=== PATIENT | female | born 1930 | race African-American/Black ===

== ENCOUNTER → 2017-10-17 | Outpatient (CLI) | payer MEDICARE, OTHER ==
[~2017-10-17] VITALS: Ht 170.2 cm; Wt 82.0 kg
[~2017-10-17] MED LIST: ASCO500 PO; ASPI-1182 PO; CARV25 PO; CHL25 PO; ESOM40CA PO; FLUT1BLS PO; IPRAHFA IH; LORA10TA7 PO; MELO-107 PO; OMEG-53 PO; PRAV40TA4 PO; PRED10 PO; SANTO TP; TIOT4MIS5 IH; VALS160T2 PO; VITA400T9 PO; VITAD1000 PO; [UNRECOGNIZED DRUG - CODE] PO
[2017-10-17 10:48] VITALS: BP 171/79
== END | disposition home or self-care (01) ==
LOC: SRCNTR 10:19
PROVIDERS: ATTEND Internal Medicine Cardiovascular Disease
DX: I11.9 Hypertensive heart disease without heart failure (principal); E11.9 Type 2 diabetes mellitus without complications; E78.5 Hyperlipidemia, unspecified; K51.90 Ulcerative colitis, unspecified, without complications; K27.9 Peptic ulcer, site unspecified, unspecified as acute or chronic, without hemorrhage or perforation; K21.9 Gastro-esophageal reflux disease without esophagitis; K64.9 Unspecified hemorrhoids; K31.84 Gastroparesis; J44.9 Chronic obstructive pulmonary disease, unspecified; F17.210 Nicotine dependence, cigarettes, uncomplicated; Z79.82 Long term (current) use of aspirin; Z86.73 Personal history of transient ischemic attack (TIA), and cerebral infarction without residual deficits; Z88.0 Allergy status to penicillin; Z90.49 Acquired absence of other specified parts of digestive tract; Z96.651 Presence of right artificial knee joint
CPT/HCPCS: G0463

== ENCOUNTER → 2017-10-30 | Outpatient (CLI) | payer MEDICARE, OTHER ==
[2017-10-30 12:30] LABS: BASOPHILS % (AUTO) 1.1 % (0.0-2.0); EOSINOPHILS % (AUTO) 9.3 % (1.0-6.0); HEMATOCRIT 37.4 % (36-46); HEMOGLOBIN 12.7 g/dL (12.0-16.0); LYMPHOCYTES # (AUTO) 1.7 K/uL (1.0-4.8); LYMPHOCYTES % (AUTO) 19.8 % (22.0-44.0); MEAN CORPUSCULAR HEMOGLOBIN 30.6 pg (26.0-34.0); MEAN CORPUSCULAR VOLUME 90 fL (80-100); MONOCYTES # (AUTO) 0.8 K/uL (0.1-1.0); MONOCYTES % (AUTO) 9.9 % (2.0-9.0); NEUTROPHILS # (AUTO) 5.1 K/uL (1.8-7.7); NEUTROPHILS % (AUTO) 59.9 % (40.0-70.0); PLATELET COUNT (AUTO) 234 K/uL (150-450); RED BLOOD CELL COUNT(AUTO) 4.16 MIL/uL (4.00-5.20); RED CELL DISTRIBUTION WIDTH 14.9 % (11.5-14.5)
[2017-10-30 12:45] LABS: ALBUMIN 3.7 g/dL (3.4-5.0); BILIRUBIN,TOTAL 0.4 mg/dL (0.1-1.0); CALCIUM, TOTAL 8.9 mg/dL (8.8-10.5); CHOL/HDL RATIO 1.9 (3.9-5.7); CREATININE 1.33 mg/dL (0.60-1.30); POTASSIUM 3.9 mmol/L (3.5-5.1); THYROID STIMULATING HORMONE 4.78 uIU/mL (0.36-3.74); TOTAL PROTEIN, SERUM 7.8 g/dL (6.4-8.2)
[2017-10-30 13:07] LABS: APPEARANCE,URINE CLEAR (CLEAR); BILIRUBIN,URINE NEGATIVE (NEGATIVE); GLUCOSE, URINE (UA) NEGATIVE (NEGATIVE); KETONES,URINE NEGATIVE (NEGATIVE); LEUKOCYTE ESTERASE ,URINE NEGATIVE (NEGATIVE); NITRATE,URINE NEGATIVE (NEGATIVE); OCCULT BLOOD,URINE NEGATIVE (NEGATIVE); PH,URINE 5.5 (5.0-8.0); PROTEIN,URINE NEGATIVE (NEGATIVE); UROBILINOGEN,URINE 0.2 mg/dL (<=1.0)
[2017-10-30 13:44] LABS: BACTERIA,URINE Rare /HPF (None Seen); RBC,URINE None Seen /HPF (0-2); SQUAMOUS EPITHELIAL CELL,UR Few /LPF (None Seen); WBC,URINE 0-2 /HPF (0-5)
[2017-10-30 14:27] LABS: HEMOGLOBIN A1C 6.5 % (4.5-6.2)
== END | disposition home or self-care (01) ==
LOC: LABPV 09:49
PROVIDERS: ATTEND Internal Medicine Cardiovascular Disease
DX: I10 Essential (primary) hypertension (principal); E11.9 Type 2 diabetes mellitus without complications
CPT/HCPCS: 83036; 84443

== ENCOUNTER → 2017-11-25 | Outpatient (CLI) | payer MEDICARE, OTHER ==
[~2017-11-25] VITALS: Ht 170.2 cm; Wt 82.0 kg
[2017-11-25 14:58] VITALS: BP 130/57
== END | disposition home or self-care (01) ==
LOC: SRCNTR 14:55
PROVIDERS: ATTEND Podiatrist Foot & Ankle Surgery
DX: E11.51 Type 2 diabetes mellitus with diabetic peripheral angiopathy without gangrene (principal); L57.0 Actinic keratosis; Z79.82 Long term (current) use of aspirin; Z88.0 Allergy status to penicillin
CPT/HCPCS: G0463

== ENCOUNTER → 2018-01-02 | Outpatient (CLI) | payer MEDICARE, OTHER ==
[~2018-01-02] VITALS: Ht 170.2 cm; Wt 82.5 kg
[2018-01-02 11:00] VITALS: BP 152/61
== END | disposition home or self-care (01) ==
LOC: SRCNTR 10:46
PROVIDERS: ATTEND Internal Medicine Cardiovascular Disease
DX: Z48.812 Encounter for surgical aftercare following surgery on the circulatory system (principal); I11.0 Hypertensive heart disease with heart failure; I50.9 Heart failure, unspecified; I25.10 Atherosclerotic heart disease of native coronary artery without angina pectoris; J44.9 Chronic obstructive pulmonary disease, unspecified; E78.00 Pure hypercholesterolemia, unspecified; M81.0 Age-related osteoporosis without current pathological fracture
CPT/HCPCS: G0463

== ENCOUNTER → 2018-04-24 | Outpatient (CLI) | payer MEDICARE, OTHER ==
[~2018-04-24] VITALS: Ht 170.2 cm; Wt 83.5 kg
[2018-04-24 10:40] VITALS: BP 159/61
== END | disposition home or self-care (01) ==
LOC: SRCNTR 10:34
PROVIDERS: ATTEND Internal Medicine Cardiovascular Disease
DX: I11.9 Hypertensive heart disease without heart failure (principal); E11.9 Type 2 diabetes mellitus without complications; K21.9 Gastro-esophageal reflux disease without esophagitis; K51.90 Ulcerative colitis, unspecified, without complications; E78.5 Hyperlipidemia, unspecified
CPT/HCPCS: G0463

== ENCOUNTER → 2018-08-22 | Outpatient (CLI) | payer MEDICARE, OTHER ==
[~2018-08-22] MED LIST changes: +AMLO-512 PO; +ESOM40CA54 PO; +IRBE150T51 PO; +LEVO5TAB13 PO; +METF-283 PO; +PANT40TA25 PO; +SPIR25 PO; +VENTOLIN HFA
[2018-08-22 12:36] LABS: BASOPHILS % (AUTO) 0.9 % (0.0-2.0); EOSINOPHILS % (AUTO) 10.9 % (1.0-6.0); HEMOGLOBIN 12.2 g/dL (12.0-16.0); LYMPHOCYTES # (AUTO) 1.5 K/uL (1.0-4.8); LYMPHOCYTES % (AUTO) 18.8 % (22.0-44.0); MEAN CORPUSCULAR HEMOGLOBIN 30.3 pg (26.0-34.0); MEAN CORPUSCULAR HGB CONC 32.9 G/dL (31.0-37.0); MEAN CORPUSCULAR VOLUME 92 fL (80-100); MONOCYTES # (AUTO) 0.9 K/uL (0.1-1.0); MONOCYTES % (AUTO) 11.2 % (2.0-9.0); NEUTROPHILS # (AUTO) 4.5 K/uL (1.8-7.7); NEUTROPHILS % (AUTO) 58.2 % (40.0-70.0); PLATELET COUNT (AUTO) 246 K/uL (150-450); RED BLOOD CELL COUNT(AUTO) 4.01 MIL/uL (4.00-5.20)
[2018-08-22 12:36] LABS: APPEARANCE,URINE CLOUDY (CLEAR); BILIRUBIN,URINE NEGATIVE (NEGATIVE); GLUCOSE, URINE (UA) NEGATIVE (NEGATIVE); KETONES,URINE NEGATIVE (NEGATIVE); LEUKOCYTE ESTERASE ,URINE SMALL (NEGATIVE); NITRATE,URINE NEGATIVE (NEGATIVE); OCCULT BLOOD,URINE NEGATIVE (NEGATIVE); PH,URINE 5.5 (5.0-8.0); PROTEIN,URINE NEGATIVE (NEGATIVE); UROBILINOGEN,URINE 0.2 mg/dL (<=1.0)
[2018-08-22 13:00] LABS: BACTERIA,URINE Moderate /HPF (None Seen); RBC,URINE 0-2 /HPF (0-2); SQUAMOUS EPITHELIAL CELL,UR Moderate /LPF (None Seen)
[2018-08-22 13:09] LABS: HEMOGLOBIN A1C 6.8 % (4.5-6.2)
[2018-08-22 13:26] LABS: ALBUMIN 3.4 g/dL (3.4-5.0); BILIRUBIN,TOTAL 0.3 mg/dL (0.1-1.0); CALCIUM, TOTAL 8.8 mg/dL (8.8-10.5); CREATININE 1.57 mg/dL (0.60-1.30); POTASSIUM 3.7 mmol/L (3.5-5.1); THYROID STIMULATING HORMONE 4.32 uIU/mL (0.36-3.74); TOTAL PROTEIN, SERUM 7.3 g/dL (6.4-8.2)
[2018-08-22 13:43] LABS: CHOL/HDL RATIO 1.7 (3.9-5.7)
== END | disposition home or self-care (01) ==
LOC: LABPV 11:45
PROVIDERS: ATTEND Hospitalist
DX: E11.22 Type 2 diabetes mellitus with diabetic chronic kidney disease (principal); I13.0 Hypertensive heart and chronic kidney disease with heart failure and stage 1 through stage 4 chronic kidney disease, or unspecified chronic kidney disease; N18.9 Chronic kidney disease, unspecified; I50.9 Heart failure, unspecified; E11.51 Type 2 diabetes mellitus with diabetic peripheral angiopathy without gangrene; E11.65 Type 2 diabetes mellitus with hyperglycemia; Z79.82 Long term (current) use of aspirin; Z79.899 Other long term (current) drug therapy
CPT/HCPCS: 82271; 83036; 84443; 87086

== ENCOUNTER → 2018-09-12 | Outpatient (CLI) | payer MEDICARE, OTHER ==
[~2018-09-12] MED LIST changes: -ESOM40CA PO; -PRED10 PO; -VALS160T2 PO; -[UNRECOGNIZED DRUG - CODE] PO
[2018-09-12 12:05] LABS: BASOPHILS % (AUTO) 0.5 % (0.0-2.0); EOSINOPHILS % (AUTO) 8.9 % (1.0-6.0); HEMATOCRIT 41.1 % (36-46); HEMOGLOBIN 13.6 g/dL (12.0-16.0); LYMPHOCYTES # (AUTO) 1.7 K/uL (1.0-4.8); LYMPHOCYTES % (AUTO) 23.7 % (22.0-44.0); MEAN CORPUSCULAR HEMOGLOBIN 30.2 pg (26.0-34.0); MEAN CORPUSCULAR VOLUME 92 fL (80-100); MONOCYTES # (AUTO) 0.8 K/uL (0.1-1.0); MONOCYTES % (AUTO) 10.5 % (2.0-9.0); NEUTROPHILS # (AUTO) 4.1 K/uL (1.8-7.7); NEUTROPHILS % (AUTO) 56.4 % (40.0-70.0); PLATELET COUNT (AUTO) 296 K/uL (150-450); RED BLOOD CELL COUNT(AUTO) 4.49 MIL/uL (4.00-5.20); RED CELL DISTRIBUTION WIDTH 14.1 % (11.5-14.5)
[2018-09-12 12:27] LABS: ALBUMIN 3.6 g/dL (3.4-5.0); BILIRUBIN,TOTAL 0.4 mg/dL (0.1-1.0); CALCIUM, TOTAL 9.1 mg/dL (8.8-10.5); CREATININE 1.7 mg/dL (0.60-1.30); FREE T4 (FREE THYROXINE) 1.05 ng/dL (0.76-1.46); POTASSIUM 4.3 mmol/L (3.5-5.1); TOTAL PROTEIN, SERUM 7.6 g/dL (6.4-8.2)
== END | disposition home or self-care (01) ==
LOC: MSR 11:00
PROVIDERS: ATTEND Hospitalist
DX: J18.9 Pneumonia, unspecified organism (principal); I70.0 Atherosclerosis of aorta; I13.0 Hypertensive heart and chronic kidney disease with heart failure and stage 1 through stage 4 chronic kidney disease, or unspecified chronic kidney disease; E11.22 Type 2 diabetes mellitus with diabetic chronic kidney disease; N18.9 Chronic kidney disease, unspecified; I50.9 Heart failure, unspecified
CPT/HCPCS: 84439

== ENCOUNTER → 2018-09-12 | Outpatient (CLI) | payer MEDICARE, OTHER ==
[~2018-09-12] VITALS: Ht 170.2 cm; Wt 84.0 kg
[2018-09-12 10:20] VITALS: BP 119/55
== END | disposition home or self-care (01) ==
LOC: SRCNTR 10:10
PROVIDERS: ATTEND Hospitalist
DX: M16.11 Unilateral primary osteoarthritis, right hip (principal); E11.65 Type 2 diabetes mellitus with hyperglycemia; J20.9 Acute bronchitis, unspecified; J44.9 Chronic obstructive pulmonary disease, unspecified; E78.5 Hyperlipidemia, unspecified; I10 Essential (primary) hypertension
CPT/HCPCS: G0463

== ENCOUNTER 2018-11-23 16:34 | Emergency (ER) | payer MEDICARE, OTHER ==
[~2018-11-23] VITALS: Ht 162.6 cm; Wt 81.8 kg
[~2018-11-23 16:34] MED LIST changes: +BUDE0.5A3 NEB; +CETI10TA59 PO; -ESOM40CA54 PO; -FLUT1BLS PO; +GUAIF600 PO; +IPRA3AMP24 NEB; -LEVO5TAB13 PO; -LORA10TA7 PO; -MELO-107 PO; +MONT10TA21 PO; +PROM5SYR2 PO; -SANTO TP; -TIOT4MIS5 IH
[2018-11-23 17:19] LABS: GLUCOSE,POINT OF CARE 196 MG/DL (70-110)
[2018-11-23] MEDS ORDERED: ONDANSETRON HCL 4 MG/2 ML VIAL IVP ONE (18:45)
[2018-11-23] MEDS ORDERED: SODIUM CHLORIDE 0.9% 500 ML IV ONE ×2 (18:45→19:45)
[2018-11-23 18:55] LABS: BASOPHILS % (AUTO) 1.1 % (0.0-2.0); EOSINOPHILS % (AUTO) 7.2 % (1.0-6.0); HEMATOCRIT 34.5 % (36-46); HEMOGLOBIN 11.2 g/dL (12.0-16.0); LYMPHOCYTES # (AUTO) 1.4 K/uL (1.0-4.8); LYMPHOCYTES % (AUTO) 15.1 % (22.0-44.0); MEAN CORPUSCULAR HEMOGLOBIN 30.2 pg (26.0-34.0); MEAN CORPUSCULAR HGB CONC 32.5 G/dL (31.0-37.0); MEAN CORPUSCULAR VOLUME 93 fL (80-100); MONOCYTES # (AUTO) 1.1 K/uL (0.1-1.0); NEUTROPHILS # (AUTO) 5.8 K/uL (1.8-7.7); NEUTROPHILS % (AUTO) 64.6 % (40.0-70.0); PLATELET COUNT (AUTO) 225 K/uL (150-450); RED BLOOD CELL COUNT(AUTO) 3.72 MIL/uL (4.00-5.20)
[2018-11-23 19:05] LABS: CREATININE 1.81 mg/dL (0.60-1.30); POTASSIUM 3.9 mmol/L (3.5-5.1)
[2018-11-23 19:07] LABS: PROTHROMBIN TIME 10.4 SEC (9.4-11.6)
[2018-11-23] MEDS ORDERED: MORPHINE SULFATE 2 MG/ML SYRINGE IVP ONE (19:15)
[2018-11-23 19:30] LABS: ALBUMIN 3.6 g/dL (3.4-5.0); BILIRUBIN,TOTAL 0.3 mg/dL (0.1-1.0); TOTAL PROTEIN, SERUM 7.3 g/dL (6.4-8.2)
[2018-11-23] MEDS ORDERED: CYCLOBENZAPRINE HCL 10 MG TABLET PO ONE (20:00)
[2018-11-23 20:10] LABS: GLUCOSE,POINT OF CARE 104 MG/DL (70-110)
[2018-11-23 20:40] VITALS: BP 149/57
== END 2018-11-23 20:56 | disposition home or self-care (01) ==
LOC: EMS 16:36
DX: E86.0 Dehydration (principal); M62.838 Other muscle spasm; I11.0 Hypertensive heart disease with heart failure; I50.9 Heart failure, unspecified; E11.9 Type 2 diabetes mellitus without complications; E78.00 Pure hypercholesterolemia, unspecified; J45.909 Unspecified asthma, uncomplicated; Z88.0 Allergy status to penicillin; Z79.899 Other long term (current) drug therapy
CPT/HCPCS: 36415; 80053; 82550; 82962; 83690; 83880; 84484; 85025; 85610; 85730; 93005; 96374; 96375; 99285; J2270; J2405; J7040; 96361

== ENCOUNTER 2019-03-25 12:42 | Emergency (ER) | payer MEDICARE, OTHER ==
[~2019-03-25] VITALS: Ht 162.6 cm; Wt 82.7 kg
[~2019-03-25 12:42] MED LIST changes: -AMLO-512 PO; +AMLO10TA7 PO; -CETI10TA59 PO; +CHOL100018 PO; -METF-283 PO; -VITAD1000 PO
[2019-03-25 13:06] LABS: GLUCOSE,POINT OF CARE 96 MG/DL (70-110)
[2019-03-25] MEDS ORDERED: SITA50 PO (13:06)
[2019-03-25] MEDS ORDERED: SODIUM CHLORIDE 0.9% 250 ML IRRIG SOLUTION BOTTLE IRRIG ONE (15:15)
[2019-03-25] MEDS ORDERED: PERTUSS(ACELL),DIPH,TET VAC/PF 0.5 ML VIAL IM ONE (15:15)
[2019-03-25 15:39] VITALS: BP 121/62
[2019-03-25] MEDS ORDERED: ACETAMINOPHEN 325 MG TABLET PO ONE (15:45)
== END 2019-03-25 15:42 | disposition home or self-care (01) ==
LOC: EMS 12:45
DX: S01.111A Laceration without foreign body of right eyelid and periocular area, initial encounter (principal); S80.212A Abrasion, left knee, initial encounter; E11.9 Type 2 diabetes mellitus without complications; E78.00 Pure hypercholesterolemia, unspecified; I11.0 Hypertensive heart disease with heart failure; I50.9 Heart failure, unspecified; J45.909 Unspecified asthma, uncomplicated; M19.90 Unspecified osteoarthritis, unspecified site; Z86.73 Personal history of transient ischemic attack (TIA), and cerebral infarction without residual deficits; Z79.899 Other long term (current) drug therapy; Z90.49 Acquired absence of other specified parts of digestive tract; Z90.710 Acquired absence of both cervix and uterus; Z88.0 Allergy status to penicillin; W01.0XXA Fall on same level from slipping, tripping and stumbling without subsequent striking against object, initial encounter; Y93.89 Activity, other specified; Y92.89 Other specified places as the place of occurrence of the external cause; Y99.8 Other external cause status
CPT/HCPCS: 12011; 90471; 90715

== ENCOUNTER → 2019-12-31 | Outpatient (CLI) | payer MEDICARE, OTHER ==
[~2019-12-31] MED LIST changes: +AMLO-258 PO; -AMLO10TA7 PO; +ASPI-1111 PO; -ASPI-1182 PO; +MONT-35 PO; -MONT10TA21 PO; +PANT-31 PO; -PANT40TA25 PO; +SITA50 PO
== END | disposition home or self-care (01) ==
LOC: SRCNTR 11:40
PROVIDERS: ATTEND Hospitalist
DX: I10 Essential (primary) hypertension (principal); E78.5 Hyperlipidemia, unspecified; J44.9 Chronic obstructive pulmonary disease, unspecified; K51.90 Ulcerative colitis, unspecified, without complications; E11.9 Type 2 diabetes mellitus without complications; M19.90 Unspecified osteoarthritis, unspecified site; E06.9 Thyroiditis, unspecified; Z86.73 Personal history of transient ischemic attack (TIA), and cerebral infarction without residual deficits; Z79.899 Other long term (current) drug therapy; Z88.0 Allergy status to penicillin
CPT/HCPCS: Q3014

== ENCOUNTER → 2020-03-10 | Outpatient (CLI) | payer MEDICARE, OTHER | END | disposition home or self-care (01) | LOC: SRCNTR 12:00 | PROVIDERS: ATTEND Hospitalist | DX: J44.9 Chronic obstructive pulmonary disease, unspecified (principal); K59.00 Constipation, unspecified; E11.9 Type 2 diabetes mellitus without complications; E78.5 Hyperlipidemia, unspecified; I10 Essential (primary) hypertension; K64.9 Unspecified hemorrhoids; K51.90 Ulcerative colitis, unspecified, without complications; R25.2 Cramp and spasm; Z79.899 Other long term (current) drug therapy; Z88.0 Allergy status to penicillin; Z86.73 Personal history of transient ischemic attack (TIA), and cerebral infarction without residual deficits | CPT/HCPCS: Q3014 ==

== ENCOUNTER → 2020-03-18 | Outpatient (CLI) | payer MEDICARE, OTHER ==
[2020-03-18 12:36] LABS: BASOPHILS % (AUTO) 1.1 % (0.0-2.0); EOSINOPHILS % (AUTO) 9.1 % (1.0-6.0); HEMATOCRIT 40.3 % (36-46); LYMPHOCYTES # (AUTO) 1.5 K/uL (1.0-4.8); LYMPHOCYTES % (AUTO) 18.5 % (22.0-44.0); MEAN CORPUSCULAR HGB CONC 32.2 G/dL (31.0-37.0); MEAN CORPUSCULAR VOLUME 93 fL (80-100); MONOCYTES # (AUTO) 0.8 K/uL (0.1-1.0); MONOCYTES % (AUTO) 10.1 % (2.0-9.0); NEUTROPHILS # (AUTO) 5.1 K/uL (1.8-7.7); NEUTROPHILS % (AUTO) 61.2 % (40.0-70.0); PLATELET COUNT (AUTO) 207 K/uL (150-450); RED BLOOD CELL COUNT(AUTO) 4.32 MIL/uL (4.00-5.20); RED CELL DISTRIBUTION WIDTH 14.4 % (11.5-14.5)
[2020-03-18 12:49] LABS: HEMOGLOBIN A1C 6.6 % (3.8-5.6)
[2020-03-18 12:55] LABS: ALBUMIN 3.8 g/dL (3.4-5.0); BILIRUBIN,TOTAL 0.4 mg/dL (0.1-1.0); CALCIUM, TOTAL 9.1 mg/dL (8.8-10.5); CHOL/HDL RATIO 2.4 (3.9-5.7); CREATININE 2.06 mg/dL (0.60-1.30); FREE T4 (FREE THYROXINE) 1.03 ng/dL (0.76-1.46); MAGNESIUM 2.2 mg/dL (1.80-2.40); POTASSIUM 4.6 mmol/L (3.5-5.1); THYROID STIMULATING HORMONE 3.68 uIU/mL (0.36-3.74); TOTAL PROTEIN, SERUM 7.7 g/dL (6.4-8.2)
== END | disposition home or self-care (01) ==
LOC: LABPV 10:45
PROVIDERS: ATTEND Hospitalist
DX: E11.9 Type 2 diabetes mellitus without complications (principal); R03.0 Elevated blood-pressure reading, without diagnosis of hypertension; I10 Essential (primary) hypertension
CPT/HCPCS: 83036; 83735; 84439; 84443

== ENCOUNTER → 2020-10-26 | Outpatient (CLI) | payer MEDICARE, OTHER ==
[~2020-10-26] MED LIST changes: -ASPI-1111 PO; +ASPI-1444 PO; +LORA10TA7 PO; +PROM473S4 PO; -PROM5SYR2 PO
[2020-10-26 12:23] LABS: EOSINOPHILS % (AUTO) 8.3 % (1.0-6.0); HEMATOCRIT 39.2 % (36-46); HEMOGLOBIN 12.8 g/dL (12.0-16.0); LYMPHOCYTES # (AUTO) 1.5 K/uL (1.0-4.8); LYMPHOCYTES % (AUTO) 17.7 % (22.0-44.0); MEAN CORPUSCULAR HEMOGLOBIN 30.8 pg (26.0-34.0); MEAN CORPUSCULAR HGB CONC 32.6 G/dL (31.0-37.0); MEAN CORPUSCULAR VOLUME 94 fL (80-100); MONOCYTES # (AUTO) 0.8 K/uL (0.1-1.0); MONOCYTES % (AUTO) 9.3 % (2.0-9.0); NEUTROPHILS # (AUTO) 5.6 K/uL (1.8-7.7); NEUTROPHILS % (AUTO) 63.7 % (40.0-70.0); RED BLOOD CELL COUNT(AUTO) 4.16 MIL/uL (4.00-5.20); RED CELL DISTRIBUTION WIDTH 14.6 % (11.5-14.5)
[2020-10-26 12:28] LABS: HEMOGLOBIN A1C 6.8 % (3.8-5.6)
[2020-10-26 12:42] LABS: ALBUMIN 3.7 g/dL (3.4-5.0); BILIRUBIN,TOTAL 0.5 mg/dL (0.1-1.0); CHOL/HDL RATIO 2.3 (3.9-5.7); CREATININE 1.99 mg/dL (0.60-1.30); POTASSIUM 4.6 mmol/L (3.5-5.1); THYROID STIMULATING HORMONE 4.68 uIU/mL (0.36-3.74); TOTAL PROTEIN, SERUM 7.6 g/dL (6.4-8.2)
[2020-10-26 12:49] LABS: PLATELET COUNT (AUTO) 203 K/uL (150-450)
== END | disposition home or self-care (01) ==
LOC: LABPV 10:28
PROVIDERS: ATTEND Hospitalist
DX: E78.5 Hyperlipidemia, unspecified (principal); E11.9 Type 2 diabetes mellitus without complications
CPT/HCPCS: 83036; 84443

== ENCOUNTER → 2020-10-26 | Outpatient (CLI) | payer MEDICARE, OTHER ==
[~2020-10-26] VITALS: Ht 162.6 cm; Wt 87.3 kg
[2020-10-26 09:31] VITALS: BP 119/48
[2020-10-26 10:02] LABS: GLUCOMETER DEV NAME(LOC) SHC.; GLUCOSE,POINT OF CARE 137 MG/DL (70-110)
== END | disposition home or self-care (01) ==
LOC: SRCNTR 08:56
PROVIDERS: ATTEND Hospitalist
DX: M54.2 Cervicalgia (principal); M54.5 Low back pain; M79.661 Pain in right lower leg; M79.662 Pain in left lower leg
CPT/HCPCS: 82962; G0463

== ENCOUNTER → 2020-11-17 | Outpatient (CLI) | payer MEDICARE, OTHER ==
[~2020-11-17] MED LIST changes: -BUDE0.5A3 NEB; -IPRAHFA IH; -PROM473S4 PO
== END | disposition home or self-care (01) ==
LOC: RADPV 12:27
PROVIDERS: ATTEND Hospitalist
DX: M47.817 Spondylosis without myelopathy or radiculopathy, lumbosacral region (principal); M48.07 Spinal stenosis, lumbosacral region; M25.78 Osteophyte, vertebrae; M48.02 Spinal stenosis, cervical region; M54.5 Low back pain; M54.6 Pain in thoracic spine
CPT/HCPCS: 72040; 72100

== ENCOUNTER → 2020-11-30 | Outpatient (CLI) | payer MEDICARE, OTHER | END | disposition home or self-care (01) | LOC: RADPV 15:25 | PROVIDERS: ATTEND Hospitalist | DX: M76.62 Achilles tendinitis, left leg (principal); M77.8 Other enthesopathies, not elsewhere classified; E11.9 Type 2 diabetes mellitus without complications; I10 Essential (primary) hypertension; E78.5 Hyperlipidemia, unspecified | CPT/HCPCS: 73610-TC ==

== ENCOUNTER → 2020-11-30 | Outpatient (CLI) | payer MEDICARE, OTHER | END | disposition home or self-care (01) | LOC: SRCNTR 11:02 | PROVIDERS: ATTEND Hospitalist | DX: M25.571 Pain in right ankle and joints of right foot (principal); E11.9 Type 2 diabetes mellitus without complications; E78.5 Hyperlipidemia, unspecified; E11.43 Type 2 diabetes mellitus with diabetic autonomic (poly)neuropathy; K31.84 Gastroparesis; E06.9 Thyroiditis, unspecified; M19.90 Unspecified osteoarthritis, unspecified site; J44.9 Chronic obstructive pulmonary disease, unspecified; K51.80 Other ulcerative colitis without complications; Z87.11 Personal history of peptic ulcer disease | CPT/HCPCS: Q3014 ==

== ENCOUNTER → 2020-12-15 | Outpatient (CLI) | payer MEDICARE, OTHER ==
[2020-12-15 12:14] LABS: BASOPHILS % (AUTO) 0.9 % (0.0-2.0); EOSINOPHILS % (AUTO) 8.5 % (1.0-6.0); HEMATOCRIT 35.3 % (36-46); HEMOGLOBIN 11.6 g/dL (12.0-16.0); LYMPHOCYTES # (AUTO) 1.5 K/uL (1.0-4.8); MEAN CORPUSCULAR HEMOGLOBIN 30.5 pg (26.0-34.0); MEAN CORPUSCULAR HGB CONC 32.9 G/dL (31.0-37.0); MEAN CORPUSCULAR VOLUME 93 fL (80-100); MONOCYTES # (AUTO) 0.8 K/uL (0.1-1.0); MONOCYTES % (AUTO) 9.8 % (2.0-9.0); NEUTROPHILS % (AUTO) 61.8 % (40.0-70.0); PLATELET COUNT (AUTO) 203 K/uL (150-450); RED CELL DISTRIBUTION WIDTH 14.4 % (11.5-14.5)
[2020-12-15 12:31] LABS: HEMOGLOBIN A1C 6.8 % (3.8-5.6)
[2020-12-15 12:44] LABS: ALBUMIN 3.6 g/dL (3.4-5.0); BILIRUBIN,TOTAL 0.5 mg/dL (0.1-1.0); CALCIUM, TOTAL 8.7 mg/dL (8.8-10.5); CHOL/HDL RATIO 2.2 (3.9-5.7); CREATININE 1.79 mg/dL (0.60-1.30); POTASSIUM 4.1 mmol/L (3.5-5.1); THYROID STIMULATING HORMONE 4.63 uIU/mL (0.36-3.74); TOTAL PROTEIN, SERUM 7.1 g/dL (6.4-8.2)
== END | disposition home or self-care (01) ==
LOC: LABPV 11:13
PROVIDERS: ATTEND Hospitalist
DX: E11.9 Type 2 diabetes mellitus without complications (principal); I10 Essential (primary) hypertension; E78.5 Hyperlipidemia, unspecified
CPT/HCPCS: 80053; 80061; 83036; 84443; 85025